=== PATIENT | male | born 1930 | race Caucasian/White ===

== ENCOUNTER 2016-10-16 07:31 | Day surgery (SDC) | payer OTHER, MEDICAID ==
[2016-10-16 08:58] VITALS: BMI 21.4
[2016-10-16 09:16] VITALS: O2SAT 100
[2016-10-16] MEDS ORDERED: Propofol 10 mg/ml Inj (20 ML) ONE (10:34)
[2016-10-16] MEDS ORDERED: Lactated Ringer's 500 ML IV ONE (10:36)
[2016-10-16 11:28] VITALS: TEMP 97.8
[2016-10-16 13:31] VITALS: BP 131/62; PULSE 68; RESP 12
== END 2016-10-16 12:00 | disposition home or self-care (01) ==
LOC: C.ENDO 07:31
PROVIDERS: ATTEND Internal Medicine Gastroenterology
DX: K22.2 Esophageal obstruction (principal); K29.50 Unspecified chronic gastritis without bleeding; K44.9 Diaphragmatic hernia without obstruction or gangrene; R13.10 Dysphagia, unspecified; E11.9 Type 2 diabetes mellitus without complications
CPT/HCPCS: 43239; 43249; 82948; 88305; C1726; J2704; J7120